=== PATIENT | female | born 1965 | race Caucasian/White ===

== ENCOUNTER 2016-04-13 12:19 | Inpatient (IN) | payer MEDICAID, OTHER ==
[~2016-04-13] VITALS: Ht 167.6 cm; Wt 88.1 kg
[2016-04-13] MEDS ORDERED: DiphenhydrAMINE HCL 50 MG/ML VIAL IM ONE (12:45)
[2016-04-13] MEDS ORDERED: LORazepam 2 MG/ML VIAL IM ONE ×2 (12:45→13:30)
[2016-04-13] MEDS ORDERED: HALOPERIDOL LACTATE 5 MG/ML VIAL IM ONE ×2 (12:45→13:30)
[2016-04-13 13:40] LABS: BASOPHILS % (AUTO) 0.7 % (0.0-2.0); EOSINOPHILS % (AUTO) 0.7 % (1.0-6.0); HEMATOCRIT 39.6 % (36-46); HEMOGLOBIN 13.3 g/dL (12.0-16.0); LYMPHOCYTES # (AUTO) 1.3 K/uL (1.0-4.8); LYMPHOCYTES % (AUTO) 12.1 % (22.0-44.0); MEAN CORPUSCULAR HGB CONC 33.5 G/dL (31.0-37.0); MEAN CORPUSCULAR VOLUME 90 fL (80-100); MONOCYTES # (AUTO) 0.5 K/uL (0.1-1.0); MONOCYTES % (AUTO) 4.4 % (2.0-9.0); NEUTROPHILS # (AUTO) 8.7 K/uL (1.8-7.7); NEUTROPHILS % (AUTO) 82.1 % (40.0-70.0); PLATELET COUNT (AUTO) 343 K/uL (150-450); RED BLOOD CELL COUNT(AUTO) 4.42 MIL/uL (4.00-5.20); RED CELL DISTRIBUTION WIDTH 13.2 % (11.5-14.5); WHITE BLOOD COUNT (AUTO) 10.6 K/uL (4.5-11.0)
[2016-04-13] MEDS ORDERED: LORazepam 2 MG TABLET PO PRN (13:45)
[2016-04-13] MEDS ORDERED: HALOPERIDOL 5 MG TABLET PO PRN (13:45)
[2016-04-13] MEDS ORDERED: ZOLPIDEM TARTRATE 10 MG TABLET PO PRN (13:45)
[2016-04-13 13:52] LABS: ANION GAP 10 mmol/L (8-16); CALCIUM, TOTAL 8.6 mg/dL (8.8-10.5); CARBON DIOXIDE 25 mmol/L (22-29); CHLORIDE 99 mmol/L (98-107); CREATININE 0.65 mg/dL (0.60-1.30); GLOMERULAR FILTR. RATE CALC > 60 mL/min (>60); POTASSIUM 3.5 mmol/L (3.5-5.1); SODIUM SERUM 134 mmol/L (136-145); UREA NITROGEN, BLOOD 13 mg/dL (7-18)
[2016-04-13 13:58] LABS: ALANINE AMINOTRANSFERASE 27 U/L (12-78); ALBUMIN 3.8 g/dL (3.4-5.0); ASPARTATE AMINOTRANSFERASE 25 U/L (15-37); BILIRUBIN,TOTAL 0.7 mg/dL (0.1-1.0); TOTAL PROTEIN, SERUM 7.3 g/dL (6.4-8.2)
[2016-04-13 16:02] LABS: GLUCOSE,POINT OF CARE 70 MG/DL (70-110)
[2016-04-13] MEDS ORDERED: INFLUENZA VIRUS VACCINE QVS 2016-17 (3YR+)/PF 60 MCG/0.5 ML SYRINGE IM ONE (17:15)
[2016-04-13] MEDS ORDERED: PNEUMOCOCCAL VACCINE POLYVALENT 0.5 ML VIAL [PPSV23] IM ONE (17:15)
[2016-04-14] MEDS ORDERED: IBUPROFEN 400 MG TABLET PO PRN ×2 (07:30→17:45)
[2016-04-14] MEDS ORDERED: ACETAMINOPHEN 325 MG TABLET PO PRN ×2 (07:30→17:45)
[2016-04-14 08:36] VITALS: BP 116/69
[2016-04-14 16:13] VITALS: BP 129/71
[2016-04-14] MEDS ORDERED: ALBUTEROL SULFATE HFA 90 MCG/PUFF 8 GM INHALER IH PRN (17:45)
[2016-04-15 06:42] VITALS: BP 118/70
[2016-04-15 09:30] LABS: HEMOGLOBIN A1C 5.9 % (4.5-6.2)
[2016-04-15 10:06] LABS: CHOL/HDL RATIO 2.5 (3.9-5.7); THYROID STIMULATING HORMONE 0.49 uIU/mL (0.36-3.74)
[2016-04-15 16:21] VITALS: BP 121/64
[2016-04-16] MEDS: DOCUSATE SODIUM 100 MG CAPSULE PO PRN ×2 (07:07→17:19)
[2016-04-16] MEDS ORDERED: MAGNESIUM HYDROXIDE SUSPENSION 30 ML UDCUP PO PRN (15:00)
[2016-04-16 16:16] VITALS: BP 101/74
[2016-04-16] MEDS: RisperiDONE 1 MG TABLET PO SCH (16:43)
[2016-04-16] MEDS ORDERED: MAGNESIUM CITRATE 300 ML ORAL SOLUTION PO ONE (18:45)
[2016-04-17 03:57] VITALS: BP 106/61
[2016-04-17 08:59] VITALS: BP 109/54
[2016-04-17] MEDS: RisperiDONE 1 MG TABLET PO SCH ×2 (09:00→16:48)
[2016-04-17 16:11] VITALS: BP 104/64
[2016-04-17] MEDS: OLANZapine 5 MG TABLET PO SCH (22:54)
[2016-04-18] MEDS: FLUoxetine HCL 20 MG CAPSULE PO SCH (08:41)
[2016-04-18] MEDS: RisperiDONE 1 MG TABLET PO SCH ×2 (08:41→16:57)
[2016-04-18 08:46] VITALS: BP 110/69
[2016-04-18 16:44] VITALS: BP 100/66
[2016-04-18 17:56] VITALS: BP 114/70
[2016-04-18] MEDS ORDERED: IBUP-1685 PO (19:37)
[2016-04-18] MEDS: OLANZapine 5 MG TABLET PO SCH ×2 (21:00→22:10)
[2016-04-18 21:47] VITALS: BP 104/62
[2016-04-19] MEDS: RisperiDONE 1 MG TABLET PO SCH (08:32)
[2016-04-19] MEDS: FLUoxetine HCL 20 MG CAPSULE PO SCH (08:32)
[2016-04-19 08:41] VITALS: BP 121/69
[2016-04-19] MEDS: POLYETHYLENE GLYCOL 3350 17 GM PACKET PO SCH ×2 (12:16→12:18)
== END 2016-04-19 11:45 | disposition home or self-care (01) | DRG 750 ==
LOC: EDUNIT# 12:19 → EMS 12:31 → B3A 14:36
PROVIDERS: ADMIT Psychiatry & Neurology Psychiatry; ATTEND Psychiatry & Neurology Psychiatry
DX: F25.0 Schizoaffective disorder, bipolar type (principal); Z78.1 Physical restraint status; I10 Essential (primary) hypertension; E11.9 Type 2 diabetes mellitus without complications; E78.00 Pure hypercholesterolemia, unspecified; E78.5 Hyperlipidemia, unspecified; J45.909 Unspecified asthma, uncomplicated; F17.210 Nicotine dependence, cigarettes, uncomplicated; F15.90 Other stimulant use, unspecified, uncomplicated; Z59.0 Homelessness; Z91.19 Patient's noncompliance with other medical treatment and regimen; Z88.1 Allergy status to other antibiotic agents; Z88.8 Allergy status to other drugs, medicaments and biological substances; Z90.710 Acquired absence of both cervix and uterus; Z90.49 Acquired absence of other specified parts of digestive tract; Z98.890 Other specified postprocedural states; Z72.89 Other problems related to lifestyle; Z28.21 Immunization not carried out because of patient refusal
CPT/HCPCS: 82962; 83036; 84443; 90471; 96372; 99291; G0480; J1200; J1630; J2060

== ENCOUNTER 2016-04-18 19:10 | Emergency (ER) | payer MEDICAID, OTHER ==
[~2016-04-18] VITALS: Ht 182.9 cm; Wt 95.5 kg
[2016-04-18] MEDS ORDERED: IBUP-1685 PO (19:37)
[2016-04-18 20:24] LABS: APPEARANCE,URINE CLEAR (CLEAR); GLUCOSE, URINE (UA) NEGATIVE (NEGATIVE); KETONES,URINE NEGATIVE (NEGATIVE); LEUKOCYTE ESTERASE ,URINE NEGATIVE (NEGATIVE); OCCULT BLOOD,URINE NEGATIVE (NEGATIVE); PROTEIN,URINE NEGATIVE (NEGATIVE)
[2016-04-18 20:45] LABS: RBC,URINE None Seen /HPF (0-2); SQUAMOUS EPITHELIAL CELL,UR Rare /LPF (None Seen)
[2016-04-18] MEDS ORDERED: POLYETHYLENE GLYCOL 3350 17 GM PACKET PO ONE (20:45)
[2016-04-18 20:47] VITALS: BP 110/79
== END 2016-04-18 21:01 | disposition home or self-care (01) ==
LOC: EMS 19:12
DX: N81.10 Cystocele, unspecified (principal); F25.9 Schizoaffective disorder, unspecified; E11.9 Type 2 diabetes mellitus without complications; E78.00 Pure hypercholesterolemia, unspecified; F15.90 Other stimulant use, unspecified, uncomplicated; F17.210 Nicotine dependence, cigarettes, uncomplicated; Z88.1 Allergy status to other antibiotic agents; Z88.8 Allergy status to other drugs, medicaments and biological substances
CPT/HCPCS: 99283; 99406

== ENCOUNTER 2016-08-13 13:42 | Inpatient (IN) | payer MEDICAID, OTHER ==
[~2016-08-13] VITALS: Ht 175.3 cm; Wt 95.4 kg
[2016-08-13 14:29] LABS: BASOPHILS # (AUTO) 0.05 K/uL (0.00-0.20); BASOPHILS % (AUTO) 0.5 % (0.0-2.0); EOSINOPHILS # (AUTO) 0.43 K/uL (0.00-0.70); EOSINOPHILS % (AUTO) 4.03 % (1.0-6.0); HEMATOCRIT 41.3 % (36-46); HEMOGLOBIN 13.5 g/dL (12.0-16.0); LYMPHOCYTES # (AUTO) 2.4 K/uL (1.0-4.8); LYMPHOCYTES % (AUTO) 21.8 % (22.0-44.0); MEAN CORPUSCULAR HGB CONC 32.6 G/dL (31.0-37.0); MEAN CORPUSCULAR VOLUME 92 fL (80-100); MONOCYTES # (AUTO) 0.7 K/uL (0.1-1.0); MONOCYTES % (AUTO) 6.7 % (2.0-9.0); NEUTROPHILS # (AUTO) 7.2 K/uL (1.8-7.7); PLATELET COUNT (AUTO) 380 K/uL (150-450); WHITE BLOOD COUNT (AUTO) 10.8 K/uL (4.5-11.0)
[2016-08-13 14:39] LABS: ANION GAP 8 mmol/L (8-16); CALCIUM, TOTAL 8.7 mg/dL (8.8-10.5); CARBON DIOXIDE 30 mmol/L (22-29); CHLORIDE 104 mmol/L (98-107); CREATININE 0.86 mg/dL (0.60-1.30); GLOMERULAR FILTR. RATE CALC > 60 mL/min (>60); POTASSIUM 3.2 mmol/L (3.5-5.1); SODIUM SERUM 142 mmol/L (136-145); UREA NITROGEN, BLOOD 14 mg/dL (7-18)
[2016-08-13 14:45] LABS: ALANINE AMINOTRANSFERASE 28 U/L (12-78); ALBUMIN 3.5 g/dL (3.4-5.0); ASPARTATE AMINOTRANSFERASE 22 U/L (15-37); BILIRUBIN,TOTAL 0.3 mg/dL (0.1-1.0); TOTAL PROTEIN, SERUM 7.1 g/dL (6.4-8.2)
[2016-08-13] MEDS ORDERED: ZOLPIDEM TARTRATE 10 MG TABLET PO PRN (15:45)
[2016-08-13] MEDS ORDERED: POTASSIUM CHLORIDE 20 MEQ ER TABLET PO ONE (16:15)
[2016-08-13 17:37] VITALS: BP 122/72
[2016-08-13 17:57] LABS: GLUCOSE,POINT OF CARE 113 MG/DL (70-110)
[2016-08-13] MEDS ORDERED: PNEUMOCOCCAL VACCINE POLYVALENT 0.5 ML VIAL [PPSV23] IM ONE (18:30)
[2016-08-14 01:47] VITALS: BP 116/67
[2016-08-14 08:14] VITALS: BP 127/64
[2016-08-14 08:35] LABS: APPEARANCE,URINE CLEAR (CLEAR); GLUCOSE, URINE (UA) NEGATIVE (NEGATIVE); KETONES,URINE NEGATIVE (NEGATIVE); LEUKOCYTE ESTERASE ,URINE SMALL (NEGATIVE); OCCULT BLOOD,URINE NEGATIVE (NEGATIVE); PH,URINE 5.5 (5.0-8.0); PROTEIN,URINE NEGATIVE (NEGATIVE)
[2016-08-14 08:36] LABS: CHOL/HDL RATIO 3.2 (3.9-5.7)
[2016-08-14 08:57] LABS: ADD UA MICROSCOPIC YES
[2016-08-14 09:01] LABS: RBC,URINE None Seen /HPF (0-2); SQUAMOUS EPITHELIAL CELL,UR Few /LPF (None Seen)
[2016-08-14] MEDS: LORazepam 2 MG TABLET PO PRN (12:01)
[2016-08-14 16:19] VITALS: BP 115/71
[2016-08-14] MEDS: OLANZapine 5 MG TABLET PO SCH (20:47)
[2016-08-14] MEDS ORDERED: ACETAMINOPHEN 325 MG TABLET PO PRN (22:45)
[2016-08-14] MEDS ORDERED: IBUPROFEN 400 MG TABLET PO PRN (22:45)
[2016-08-15 06:30] VITALS: BP 111/68
[2016-08-15] MEDS: FLUoxetine HCL 20 MG CAPSULE PO SCH ×2 (08:44→09:00)
[2016-08-15 09:10] LABS: CHOL/HDL RATIO 3.2 (3.9-5.7); THYROID STIMULATING HORMONE 1.36 uIU/mL (0.36-3.74)
[2016-08-15] MEDS: LORazepam 2 MG TABLET PO PRN (12:35)
[2016-08-15] MEDS: OLANZapine 5 MG TABLET PO SCH (21:38)
[2016-08-16 03:25] VITALS: BP 123/73
[2016-08-16 08:38] VITALS: BP 138/77
[2016-08-16] MEDS: FLUoxetine HCL 20 MG CAPSULE PO SCH (09:00)
[2016-08-16] MEDS: LORazepam 2 MG TABLET PO PRN ×2 (11:59→19:09)
[2016-08-16] MEDS: PALIPERIDONE 3 MG ER TABLET PO SCH ×2 (12:05→20:36)
[2016-08-16 16:45] VITALS: BP 115/70
[2016-08-17 06:16] VITALS: BP 110/76
[2016-08-17] MEDS: PALIPERIDONE 6 MG ER TABLET PO SCH ×2 (09:03→20:23)
[2016-08-17 09:32] VITALS: BP 117/79
[2016-08-17] MEDS: LORazepam 2 MG TABLET PO PRN (12:34)
[2016-08-17 16:35] VITALS: BP 112/65
[2016-08-18 04:41] VITALS: BP 138/80
[2016-08-18 07:24] VITALS: BP 110/75
[2016-08-18] MEDS: LORazepam 2 MG TABLET PO PRN ×3 (07:25→18:32)
[2016-08-18 08:45] VITALS: BP 102/60
[2016-08-18] MEDS: PALIPERIDONE 6 MG ER TABLET PO SCH ×2 (09:01→20:34)
[2016-08-18 16:33] VITALS: BP 116/71
[2016-08-18] MEDS: HALOPERIDOL 5 MG TABLET PO PRN (18:03)
[2016-08-18] MEDS ORDERED: MAG HYDROX/AL HYDROX/SIMETH ES 30 ML SUSPENSION UDCUP PO PRN (19:00)
[2016-08-19 06:39] VITALS: BP 100/67
[2016-08-19] MEDS: PALIPERIDONE 6 MG ER TABLET PO SCH ×2 (08:11→20:38)
[2016-08-19 08:55] VITALS: BP 105/63
[2016-08-19] MEDS: LORazepam 2 MG TABLET PO PRN ×2 (09:57→21:11)
[2016-08-19 13:52] VITALS: BP 103/73
[2016-08-19] MEDS ORDERED: PALI234D IM (14:24)
[2016-08-19] MEDS ORDERED: PALI6 PO (14:24)
[2016-08-19 16:00] VITALS: BP 131/78
[2016-08-19] MEDS ORDERED: PALIPERIDONE PALMITATE 234 MG/1.5 ML SYRINGE IM SCH (16:00)
[2016-08-19] MEDS: DOCUSATE SODIUM 100 MG CAPSULE PO SCH (16:59)
[2016-08-19] MEDS: SULFAMETHOX/TRIMETH DS 800-160 MG/TABLET PO SCH (17:44)
[2016-08-19] MEDS: HALOPERIDOL 5 MG TABLET PO PRN (21:35)
[2016-08-20 06:20] VITALS: BP 108/65
[2016-08-20 09:34] VITALS: BP 116/89
[2016-08-20] MEDS: LORazepam 2 MG TABLET PO PRN ×2 (09:35→16:54)
[2016-08-20] MEDS: PALIPERIDONE 6 MG ER TABLET PO SCH ×2 (09:35→20:23)
[2016-08-20] MEDS: SULFAMETHOX/TRIMETH DS 800-160 MG/TABLET PO SCH ×2 (09:35→16:36)
[2016-08-20] MEDS: DOCUSATE SODIUM 100 MG CAPSULE PO SCH ×2 (09:35→16:36)
[2016-08-20 16:17] VITALS: BP 102/60
[2016-08-20] MEDS: HALOPERIDOL 5 MG TABLET PO PRN (17:57)
[2016-08-21 00:13] VITALS: BP 132/65
[2016-08-21 08:54] VITALS: BP 112/66
[2016-08-21] MEDS: PALIPERIDONE 6 MG ER TABLET PO SCH (09:08)
[2016-08-21] MEDS: DOCUSATE SODIUM 100 MG CAPSULE PO SCH (09:08)
[2016-08-21] MEDS: SULFAMETHOX/TRIMETH DS 800-160 MG/TABLET PO SCH (09:08)
[2016-08-21] MEDS ORDERED: BACTDSB PO (13:04)
[2016-09-15] MEDS ORDERED: PALIPERIDONE PALMITATE 234 MG/1.5 ML SYRINGE IM SCH (09:00)
== END 2016-08-21 14:15 | disposition home or self-care (01) | DRG 750 ==
LOC: EMS 13:43 → B2S 16:17
PROVIDERS: ADMIT Psychiatry & Neurology Psychiatry; ATTEND Psychiatry & Neurology Psychiatry
DX: F25.0 Schizoaffective disorder, bipolar type (principal); R45.851 Suicidal ideations; F15.20 Other stimulant dependence, uncomplicated; E11.9 Type 2 diabetes mellitus without complications; E78.5 Hyperlipidemia, unspecified; J45.909 Unspecified asthma, uncomplicated; I10 Essential (primary) hypertension; F17.210 Nicotine dependence, cigarettes, uncomplicated; E78.00 Pure hypercholesterolemia, unspecified; R45.87 Impulsiveness; Z53.29 Procedure and treatment not carried out because of patient's decision for other reasons; Z88.1 Allergy status to other antibiotic agents; Z91.041 Radiographic dye allergy status; Z59.0 Homelessness; Z91.19 Patient's noncompliance with other medical treatment and regimen; Z90.710 Acquired absence of both cervix and uterus; Z28.21 Immunization not carried out because of patient refusal
CPT/HCPCS: 80307; 82962; 83036; 84132; 84443; 90471; 99285; G0480

== ENCOUNTER 2016-08-19 14:16 | Emergency (ER) | payer MEDICAID, OTHER ==
[~2016-08-19] VITALS: Ht 182.9 cm; Wt 122.7 kg
[2016-08-19] MEDS ORDERED: PALI234D IM (14:24)
[2016-08-19] MEDS ORDERED: PALI6 PO (14:24)
[2016-08-19 14:32] LABS: GLUCOSE,POINT OF CARE 106 MG/DL (70-110)
[2016-08-19 15:22] LABS: APPEARANCE,URINE CLEAR (CLEAR); GLUCOSE, URINE (UA) NEGATIVE (NEGATIVE); KETONES,URINE NEGATIVE (NEGATIVE); LEUKOCYTE ESTERASE ,URINE MODERATE (NEGATIVE); OCCULT BLOOD,URINE NEGATIVE (NEGATIVE); PH,URINE 6.5 (5.0-8.0); PROTEIN,URINE NEGATIVE (NEGATIVE)
[2016-08-19 15:23] LABS: ADD UA MICROSCOPIC YES
[2016-08-19 15:29] LABS: RBC,URINE 0-2 /HPF (0-2); SQUAMOUS EPITHELIAL CELL,UR Few /LPF (None Seen)
[2016-08-19] MEDS ORDERED: SULFAMETHOX/TRIMETH DS 800-160 MG/TABLET PO ONE (15:30)
[2016-08-19 15:35] VITALS: BP 110/72
== END 2016-08-19 16:02 | disposition home or self-care (01) ==
LOC: EMS 14:18
DX: N81.4 Uterovaginal prolapse, unspecified (principal); N39.0 Urinary tract infection, site not specified; F20.9 Schizophrenia, unspecified; E11.9 Type 2 diabetes mellitus without complications; E78.00 Pure hypercholesterolemia, unspecified; F15.90 Other stimulant use, unspecified, uncomplicated; Z87.891 Personal history of nicotine dependence; Z88.1 Allergy status to other antibiotic agents; Z88.8 Allergy status to other drugs, medicaments and biological substances
CPT/HCPCS: 82962; 87086; 99284

== ENCOUNTER 2017-01-18 12:40 | Emergency (ER) | payer MEDICAID, OTHER ==
[~2017-01-18] VITALS: Ht 185.4 cm; Wt 100.0 kg
[~2017-01-18 12:40] MED LIST: ARIP10TA8 PO
[2017-01-18] MEDS ORDERED: ACETAMINOPHEN 500 MG TABLET PO ONE (13:45)
[2017-01-18] MEDS ORDERED: HYDROCODONE/ACETAMINOPHEN 5-325 MG TABLET PO ONE (14:00)
[2017-01-18 14:05] VITALS: BP 107/73
[2017-01-18 14:16] LABS: APPEARANCE,URINE CLEAR (CLEAR); GLUCOSE, URINE (UA) NEGATIVE (NEGATIVE); KETONES,URINE NEGATIVE (NEGATIVE); LEUKOCYTE ESTERASE ,URINE TRACE (NEGATIVE); OCCULT BLOOD,URINE SMALL (NEGATIVE); PROTEIN,URINE NEGATIVE (NEGATIVE)
[2017-01-18 14:34] LABS: SQUAMOUS EPITHELIAL CELL,UR Few /LPF (None Seen); WBC,URINE 0-2 /HPF (0-5)
== END 2017-01-18 14:45 | disposition left against medical advice (07) ==
LOC: EMS 12:42
DX: R10.2 Pelvic and perineal pain (principal); J45.909 Unspecified asthma, uncomplicated; E11.9 Type 2 diabetes mellitus without complications; E78.00 Pure hypercholesterolemia, unspecified; F12.90 Cannabis use, unspecified, uncomplicated; F19.90 Other psychoactive substance use, unspecified, uncomplicated; Z59.0 Homelessness; Z87.891 Personal history of nicotine dependence; Z88.1 Allergy status to other antibiotic agents; Z88.8 Allergy status to other drugs, medicaments and biological substances
CPT/HCPCS: 99284

== ENCOUNTER 2017-01-23 20:34 | Emergency (ER) | payer OTHER ==
[~2017-01-23] VITALS: Ht 182.9 cm; Wt 80.0 kg
[2017-01-23 20:44] VITALS: BP 114/68
== END 2017-01-23 21:53 | disposition left against medical advice (07) ==
LOC: EMS 20:36
DX: R10.9 Unspecified abdominal pain (principal); J45.909 Unspecified asthma, uncomplicated; E11.9 Type 2 diabetes mellitus without complications; E78.00 Pure hypercholesterolemia, unspecified; F12.90 Cannabis use, unspecified, uncomplicated; F19.90 Other psychoactive substance use, unspecified, uncomplicated; Z59.0 Homelessness; Z87.891 Personal history of nicotine dependence; Z88.1 Allergy status to other antibiotic agents; Z88.8 Allergy status to other drugs, medicaments and biological substances; Z53.21 Procedure and treatment not carried out due to patient leaving prior to being seen by health care provider
CPT/HCPCS: 99283

== ENCOUNTER 2017-04-07 16:14 | Emergency (ER) | payer OTHER ==
[~2017-04-07] VITALS: Ht 183.5 cm; Wt 143.2 kg
[~2017-04-07 16:14] MED LIST changes: -ARIP10TA8 PO; +CefTRIAXone SODIUM 1 GM/VIAL IM ONE; +LIDOCAINE HCL/PF 1% 2 ML VIAL IM ONE
[2017-04-07 16:48] LABS: GLUCOSE,POINT OF CARE 105 MG/DL (70-110)
[2017-04-07] MEDS ORDERED: ACETAMINOPHEN 500 MG TABLET PO ONE (19:15)
[2017-04-07] MEDS ORDERED: DiphenhydrAMINE HCL 25 MG CAPSULE PO ONE (20:00)
[2017-04-07] MEDS ORDERED: KETOROLAC TROMETHAMINE 60 MG/2 ML VIAL IM ONE (20:00)
[2017-04-07] MEDS ORDERED: DOXYCYCLINE 100 MG CAPSULE PO ONE (20:00)
[2017-04-07 20:24] VITALS: BP 127/72
== END 2017-04-07 20:30 | disposition home or self-care (01) ==
LOC: EMS 16:19
DX: G44.209 Tension-type headache, unspecified, not intractable (principal); N76.0 Acute vaginitis; E11.9 Type 2 diabetes mellitus without complications; E78.00 Pure hypercholesterolemia, unspecified; J45.909 Unspecified asthma, uncomplicated; F12.90 Cannabis use, unspecified, uncomplicated; F15.90 Other stimulant use, unspecified, uncomplicated; F17.200 Nicotine dependence, unspecified, uncomplicated; Z88.1 Allergy status to other antibiotic agents; Z88.5 Allergy status to narcotic agent; Z88.8 Allergy status to other drugs, medicaments and biological substances
CPT/HCPCS: 82962; 96372; 99284; 99406; J0696; J1885; J3490

== ENCOUNTER 2017-08-15 01:47 | Emergency (ER) | payer OTHER | END 2017-08-15 02:25 | disposition left against medical advice (07) | LOC: EMS 01:49 | DX: Z53.21 Procedure and treatment not carried out due to patient leaving prior to being seen by health care provider (principal) ==